=== PATIENT | male | born 1960 | race Caucasian/White ===

== ENCOUNTER 2017-08-06 19:08 | Emergency (ER) | payer BC ==
--- NOTE | 2017-08-06 19:38 | RAD ---
Indication: Neurologic deficit, slurred speech, RIGHT-sided droop, uneven pupils. Comparison: September 20, 2015 Technique: Noncontrast CT vertex of skull through foramen magnum. Report: The sulci, ventricles, and basal cisterns are normal for age. Decreased density in the periventricular and subcortical white matter while non-specific is most likely due to chronic microangiopathy. Castle matter white matter differentiation is preserved without evidence for edema. No intra or extra axial hemorrhage, mass, or fluid collection detected. Unremarkable visualized orbital contents. Unremarkable calvarium and skull base. Unremarkable scalp. The visualized paranasal sinuses and mastoid air spaces are clear. IMPRESSION: 1. No acute intracranial process evident. 2. Stigmata of probable chronic small vessel ischemic disease without change.
[2017-08-06] MEDS ORDERED: NS 0.9% 1000 ML* 1,000 ML IV ONE (19:41)
[2017-08-06 20:18] LABS: ABS Basophils 0 10^3/ul (0-0.2); ABS Eosinophils 0 10^3/ul (0-0.6); ABS Lymphocytes 1.9 10^3/ul (1.0-4.8); ABS Monocytes 0.5 10^3/ul (0-0.8); ABS Neutrophils 4.4 10^3/ul (1.5-7.7); ABS Nucleated RBC 0 10^3/ul; Eosinophil % 0.2 % (0-6); Hematocrit 42 % (42-52); Hemoglobin 13.8 g/dl (14.0-18.0); Lymphocyte % 27.8 % (25-47); Mean Corpuscular HGB Conc 33 g/dl (31-36); Mean Corpuscular Hemoglobin 29 pg (27-31); Mean Corpuscular Volume 88 fL (80-94); Mean Platelet Volume 6.4 um3 (7.4-10.4); Nucleated Red Blood Cells % 0; Platelet Count 282 10^3/ul (150-450); Red Blood Count 4.71 10^6/ul (4.0-5.4); Red Cell Distribution Width 16 % (10.5-15); White Blood Count 6.8 10^3/ul (3.5-10.8)
[2017-08-06 20:22] LABS: INR 0.91 (0.77-1.02)
[2017-08-06 20:35] LABS: EGFR Non-African American 108.3 (>60)
[2017-08-06] MEDS ORDERED: Iohexol 350* (CONTRAST) 500 ML MDV IV ONE (20:48)
--- NOTE | 2017-08-06 20:59 | RAD ---
Indication: Dizziness, intoxication. Comparison: No relevant prior exams available on the [facility] for comparison. Technique: Upright AP 2010 hours Report: Clear lungs and pleural spaces. Negative for pneumothorax. The heart, pulmonary vasculature, and mediastinal contours are unremarkable. Unremarkable osseous structures and soft tissue contours. IMPRESSION: No evidence for acute intrathoracic disease.
[2017-08-06] MEDS ORDERED: Potassium Chlor TAB* 20 MEQ TAB.ER PO ONE (21:02)
--- NOTE | 2017-08-07 07:13 | ED ---
IWilly Nikita, scribed for Checo Lopez MD on 08/06/17 at 2358 . Progress - Progress Note Progress Note: This patient was signed out from Dr. De Souza to Dr. Lopez, pending disposition, awaiting CTA Head. CTA Head reveals mild nonspecific periventricular predominant low density throughout the deep white matter pushpa be due to mild small vessel ischemic white matter disease and other diseases including demyelinating disease is less likely. No evidence of a large territory of subacute stroke. Cannot exclude a small acute stroke. If clinically indicated recommend correlation with diffusion weighted MRI brain. No hemodynamically significant flow-limiting stenosis in the neck arterial vasculature. Course/Dx - Course Course Of Treatment: pt much improved after fluids. alert and oriented, neuro intact. No acute abnormalities on imaging, requests dc at this time. Sodium level chronically around 130. Walking normally, I instructed pt to refrain from excessive amounts of alcohol and to return to the ED for any worsening or concerning sxs. agrees to and understands dc instructions. - Diagnoses Provider Diagnoses: Alcohol intoxication Discharge - Sign-Out/Discharge Documenting (check all that apply): Discharge - Discharge Plan Condition: Improved Disposition: HOME Patient Education Materials: Alcohol Intoxication (ED) Referrals: Jose Francisco MD [Primary Care Provider] - Additional Instructions: PLEASE REFRAIN FROM EXCESSIVE ALCOHOL USE PLEASE RETURN IMMEDIATELY TO THE ER IF YOU HAVE ANY WORSENING OR CONCERNING SYMPTOMS PLEASE MAKE AN APPOINTMENT TO BE SEEN BY YOUR PRIMARY CARE DOCTOR WITHIN 1 WEEK - Billing Disposition and Condition Condition: IMPROVED Disposition: HOME The documentation as recorded by the Willy bella Nikita accurately reflects the service I personally performed and the decisions made by me, Checo Lopez MD.
--- NOTE | 2017-08-07 07:36 | RAD ---
HISTORY: Stroke, intoxication COMPARISONS: Head CT dated August 06, 2017 TECHNIQUE: Multiple contiguous axial CT scans were obtained of the head and neck after the administration of nonionic intravenous contrast timed to the systemic arterial phase of contrast enhancement. Coronal and sagittal multiplanar reformations are submitted for review. Multiple 3-D maximum intensity projection reconstructions are also submitted for review. FINDINGS: Evaluation is limited by suboptimal contrast opacification. CTA NECK: AORTIC ARCH: There is a normal three-vessel branching pattern of the aortic arch. There is no ostial or proximal stenosis of the cephalic great vessels. RIGHT VERTEBRAL ARTERY: There is calcification of the V4 segment of the right vertebral artery, without stenosis. LEFT VERTEBRAL ARTERY: The left vertebral artery is patent along its course, without stenosis. DOMINANCE: The right vertebral artery is dominant. RIGHT COMMON CAROTID ARTERY: The right common carotid artery is patent. The right carotid bifurcation occurs at C3-C4 RIGHT INTERNAL CAROTID ARTERY: There is mild calcific atheromatous disease of the right carotid bifurcation, without right internal carotid artery stenosis by NASCET criteria. The right internal carotid artery is tortuous. RIGHT EXTERNAL CAROTID ARTERY: The right external carotid artery is unremarkable. LEFT COMMON CAROTID ARTERY: The left common carotid artery is patent. The left carotid bifurcation occurs at C3-C4 LEFT INTERNAL CAROTID ARTERY: There is mild calcific atheromatous disease of the left carotid bifurcation, without left internal carotid artery stenosis by NASCET criteria. The left internal carotid artery is tortuous. LEFT EXTERNAL CAROTID ARTERY: The left external carotid artery is unremarkable. VENOUS CIRCULATION: The venous system is unremarkable. SALIVARY GLANDS: The parotid glands, submandibular glands, sublingual glands are normal. NASAL CAVITY/NASOPHARYNX: The nasal cavity and nasopharynx are normal. ORAL CAVITY/OROPHARYNX: The oral cavity is obscured by streak artifact from dental amalgam. The visualized oral cavity and oropharynx are unremarkable. LARYNGEAL APPARATUS/HYPOPHARYNX: The laryngeal apparatus and hypopharynx are normal. UPPER AIRWAY/UPPER ESOPHAGUS: The visualized upper airway and esophagus are normal. LUNG APICES: The lung apices are clear. THYROID GLAND: The thyroid gland is normal. LYMPH NODES: There is no lymphadenopathy by size criteria. BONES AND SOFT TISSUES: No bone or soft tissue abnormalities are noted. CTA HEAD: INTRACRANIAL CIRCULATION: There is no aneurysm, vascular malformation, occlusion, or stenosis of the visualized intracranial circulation. The anterior communicating artery complex is clear. There is a origin of the left posterior cerebral artery. VENOUS CIRCULATION: The venous system is unremarkable. PERFUSION: There is no obvious parenchymal perfusion deficit. HEMORRHAGE/INFARCT: There is no hemorrhage or acute infarct. MASSES/SHIFT: There is no mass or shift. EXTRA-AXIAL SPACES: There are no extra-axial fluid collections. SULCI AND VENTRICLES: The sulci and ventricles are normal in size and position for the patient's stated age. CEREBRUM: There is mild hypoattenuation of the periventricular and subcortical white matter, as noted on the noncontrast CT of the head. BRAINSTEM: There are no focal parenchymal abnormalities. CEREBELLUM: There are no focal parenchymal abnormalities. PARANASAL SINUSES: The paranasal sinuses are clear. ORBITS: The orbits are unremarkable. BONES AND SOFT TISSUE: No bone or soft tissue abnormalities are noted. OTHER: There is no abnormal enhancement. IMPRESSION: 1. MILD ATHEROSCLEROSIS. 2. NO INTERNAL CAROTID ARTERY STENOSIS BY NASCET CRITERIA. 3. NO ANEURYSM, VASCULAR MALFORMATION, OCCLUSION, OR STENOSIS OF THE VISUALIZED INTRACRANIAL CIRCULATION. CPT II Codes: 3100F
[2017-08-07 09:15] VITALS: BP 137/71
--- NOTE | 2017-08-07 10:29 | ED ---
Monica Banks Edward, scribed for Don De Souza on 08/06/17 at 1922 . Neurological HPI - HPI Summary HPI Summary: 57 y/o male BIBA for possible stroke-like symptoms, including slurred speech, possible facial droop and stumbling starting around 1 hr RESPIRATORY DIRECTOR. Pt is not fully report. Police called 1 hr RESPIRATORY DIRECTOR after pt was found stumbling down the street. Pt was found by police resting in his car. PMHx no previous strokes. Pt was out drinking with his friends earlier today, is intoxicated in the ED. Denies weakness/numbness. - History of Current Complaint Chief Complaint: EDNeurologicalDeficit Stated Complaint: INTOXICATION Hx Obtained From: Patient Onset/Duration: Started minutes ago Neurological Deficit Location: Generalized Character: Impaired Speech, Other: - stumbling, possible facial droop Aggravating: Nothing Alleviating: Nothing Associated Signs and Symptoms: Positive: Unsteady Gait, Impaired Speech - Allergy/Home Medications Allergies/Adverse Reactions: Allergies Allergy/AdvReac Type Severity Reaction Status Date / Time Sulfa (Sulfonamide Allergy Hives Verified 08/06/17 19:37 Antibiotics) PMH/Surg Hx/FS Hx/Imm Hx Previously Healthy: No Endocrine/Hematology History: Denies: Hx Anticoagulant Therapy, Hx Diabetes, Hx Thyroid Disease Cardiovascular History: Reports: Hx Hypertension Denies: Hx Congestive Heart Failure, Hx Deep Vein Thrombosis, Hx Myocardial Infarction, Hx Pacemaker/ICD Respiratory History: Denies: Hx Asthma, Hx Chronic Obstructive Pulmonary Disease (COPD), Hx Lung Cancer GI History: Denies: Hx Gall Bladder Disease, Hx Gastrointestinal Bleed, Hx Ulcer, Hx Urosepsis History: Denies: Hx Kidney Stones, Hx Renal Disease Neurological History: Denies: Hx Dementia, Hx Migraine, Hx Seizures, Hx Transient Ischemic Attacks (TIA) Psychiatric History: Reports: Hx Anxiety, Hx Depression Denies: Hx Schizophrenia, Hx Bipolar Disorder - Surgical History Surgery Procedure, Year, and Place: Hernia Repair Infectious Disease History: Denies: Hx Hepatitis, Hx Human Immunodeficiency Virus (HIV), Traveled Outside the [place] in Last 30 Days - Family History Known Family History: Positive: None - Social History Alcohol Use: None Substance Use Type: Reports: None Smoking Status (MU): Former Smoker Review of Systems Constitutional: Negative Eyes: Negative ENT: Negative Cardiovascular: Negative Respiratory: Negative Gastrointestinal: Negative Genitourinary: Negative Musculoskeletal: Negative Skin: Negative Neurological: Other - possible facial droop, stumbling Positive: Slurred Speech Psychological: Normal All Other Systems Reviewed And Are Negative: Yes Physical Exam - Summary Physical Exam Summary: Appearance: Well appearing, no pain distress Skin: warm, dry, reflects adequate perfusion Head/face: normal Eyes: EOMI, SHANNAN ENT: normal Neck: supple, non-tender Respiratory: CTA, breath sounds present Cardiovascular: RRR, pulses symmetrical Abdomen: non-tender, soft Bowel: present Musculoskeletal: normal, strength/ROM intact Neuro: normal, sensory motor intact, A&Ox3 Triage Information Reviewed: Yes Vital Signs On Initial Exam: Initial Vitals Temp Pulse Resp BP Pulse Ox 98.5 F 116 20 151/74 97 08/06/17 19:20 08/06/17 19:20 08/06/17 19:20 08/06/17 19:20 08/06/17 19:20 Vital Signs Reviewed: Yes Diagnostics - Vital Signs Vital Signs Temp Pulse Resp BP Pulse Ox 08/07/17 09:15 97.8 F 92 18 137/71 97 08/07/17 09:00 91 137/71 97 08/07/17 08:30 96 153/68 97 08/07/17 08:01 88 97 08/07/17 08:00 148/64 08/07/17 07:59 94 98 08/07/17 07:30 88 137/63 98 08/07/17 07:00 100 141/61 96 08/07/17 06:30 99 134/80 96 08/07/17 06:17 110 95 08/07/17 06:16 110/84 08/07/17 06:14 95 18 110/84 96 08/07/17 04:04 94 96 08/07/17 04:00 99 97 08/07/17 03:45 89 16 143/75 97 08/07/17 03:42 52 86 08/07/17 02:00 92 14 96 08/07/17 01:00 102 13 97 08/07/17 00:01 97 13 143/54 97 08/07/17 00:00 96 14 96 08/06/17 23:30 79 17 111/49 92 08/06/17 23:20 91 18 139/72 98 08/06/17 23:00 88 16 131/52 93 08/06/17 22:51 96 13 145/66 96 08/06/17 22:00 98 15 95 08/06/17 21:00 103 13 167/97 97 08/06/17 20:53 163/94 08/06/17 20:43 43 81 08/06/17 20:30 102 17 173/93 95 08/06/17 20:12 24 08/06/17 19:43 105 97 08/06/17 19:42 157/89 08/06/17 19:20 98.5 F 116 20 151/74 97 - Laboratory Lab Results: Lab Results 08/06/17 08/06/17 08/06/17 Range/Units 20:00 20:00 20:00 WBC 6.8 (3.5-10.8) 10^3/ul RBC 4.71 (4.0-5.4) 10^6/ul Hgb 13.8 L (14.0-18.0) g/dl Hct 42 (42-52) % MCV 88 (80-94) fL MCH 29 (27-31) pg MCHC 33 (31-36) g/dl RDW 16 H (10.5-15) % Plt Count 282 (150-450) 10^3/ul MPV 6.4 L (7.4-10.4) um3 Neut % (Auto) 64.8 (38-83) % Lymph % (Auto) 27.8 (25-47) % [place] % (Auto) 6.7 (0-7) % Eos % (Auto) 0.2 (0-6) % Baso % (Auto) 0.5 (0-2) % Absolute Neuts (auto) 4.4 (1.5-7.7) 10^3/ul Absolute Lymphs (auto) 1.9 (1.0-4.8) 10^3/ul Absolute Monos (auto) 0.5 (0-0.8) 10^3/ul Absolute Eos (auto) 0 (0-0.6) 10^3/ul Absolute Basos (auto) 0 (0-0.2) 10^3/ul Absolute Nucleated RBC 0 10^3/ul Nucleated RBC % 0 INR (Anticoag Therapy) 0.91 (0.77-1.02) APTT 29.2 (26.0-36.3) seconds Sodium 127 L (133-145) mmol/L Potassium 3.3 L (3.5-5.0) mmol/L Chloride 90 L (101-111) mmol/L Carbon Dioxide 27 (22-32) mmol/L Anion Gap 10 (2-11) mmol/L BUN 9 (6-24) mg/dL Creatinine 0.74 (0.67-1.17) mg/dL Est GFR ( Amer) 139.2 (>60) Est GFR (Non-Af Amer) 108.3 (>60) BUN/Creatinine Ratio 12.2 (8-20) Glucose 137 H (70-100) mg/dL Calcium 9.2 (8.6-10.3) mg/dL Total Bilirubin 0.50 (0.2-1.0) mg/dL AST 22 (13-39) U/L ALT 11 (7-52) U/L Alkaline Phosphatase 46 (34-104) U/L Troponin I 0.00 (<0.04) ng/mL Total Protein 8.4 (6.4-8.9) g/dL Albumin 4.7 (3.2-5.2) g/dL Globulin 3.7 (2-4) g/dL Albumin/Globulin Ratio 1.3 (1-3) Serum Alcohol 426 H* (<10) mg/dL // Range/Units 01:11 WBC (3.5-10.8) 10^3/ul RBC (4.0-5.4) 10^6/ul Hgb (14.0-18.0) g/dl Hct (42-52) % MCV (80-94) fL MCH (27-31) pg MCHC (31-36) g/dl RDW (10.5-15) % Plt Count (150-450) 10^3/ul MPV (7.4-10.4) um3 Neut % (Auto) (38-83) % Lymph % (Auto) (25-47) % [place] % (Auto) (0-7) % Eos % (Auto) (0-6) % Baso % (Auto) (0-2) % Absolute Neuts (auto) (1.5-7.7) 10^3/ul Absolute Lymphs (auto) (1.0-4.8) 10^3/ul Absolute Monos (auto) (0-0.8) 10^3/ul Absolute Eos (auto) (0-0.6) 10^3/ul Absolute Basos (auto) (0-0.2) 10^3/ul Absolute Nucleated RBC 10^3/ul Nucleated RBC % INR (Anticoag Therapy) (0.77-1.02) APTT (26.0-36.3) seconds Sodium 130 L (133-145) mmol/L Potassium (3.5-5.0) mmol/L Chloride (101-111) mmol/L Carbon Dioxide (22-32) mmol/L Anion Gap (2-11) mmol/L BUN (6-24) mg/dL Creatinine (0.67-1.17) mg/dL Est GFR ( Amer) (>60) Est GFR (Non-Af Amer) (>60) BUN/Creatinine Ratio (8-20) Glucose (70-100) mg/dL Calcium (8.6-10.3) mg/dL Total Bilirubin (0.2-1.0) mg/dL AST (13-39) U/L ALT (7-52) U/L Alkaline Phosphatase (34-104) U/L Troponin I (<0.04) ng/mL Total Protein (6.4-8.9) g/dL Albumin (3.2-5.2) g/dL Globulin (2-4) g/dL Albumin/Globulin Ratio (1-3) Serum Alcohol (<10) mg/dL Result Diagrams: 08/06/17 20:00 08/07/17 01:11 Lab Statement: Any lab studies that have been ordered have been reviewed, and results considered in the medical decision making process. - Radiology CXR Xray Interpretation: No Acute Changes - No evidence for acute intrathoracic disease Radiology Interpretation Completed By: Radiologist - CT BRAIN CT CT Interpretation: No Acute Changes - 1. No acute intracranial process evident. 2. Stigmata of probable chronic small vessel ischemic disease without change. CT Interpretation Completed By: Radiologist - EKG 1 EKG Interpretation: Sinus tachycarida @ 103 BPM. No acute changes. Course/Dx - Course Assessment/Plan: 57 y/o male BIBA for possible stroke-like symptoms, including slurred speech, possible facial droop and stumbling starting around 1 hr RESPIRATORY DIRECTOR. Pt is not fully report. Police called 1 hr RESPIRATORY DIRECTOR after pt was found stumbling down the street. Pt was found by police resting in his car. PMHx no previous strokes. Pt was out drinking with his friends earlier today, is intoxicated in the ED. BRAIN CT SHOWS 1. No acute intracranial process evident. 2. Stigmata of probable chronic small vessel ischemic disease without change. EKG - Sinus tachycarida @ 103 BPM. No acute changes. CXR shows no evidence for acute intrathoracic disease. Pt will be signed out to Dr. Lopez pending CTA and dispo. - Differential Dx Differential Diagnoses Neuro: Positive: Cerebrovascular Accident, Concussion, Intracranial Bleed, Transient Ischemic Attack, Vasovagal Reaction - Diagnoses Provider Diagnoses: Alcohol intoxication - Critical Care Time Critical Care Time: 30-74 min Discharge - Sign-Out/Discharge Documenting (check all that apply): Sign-Out Patient Signing out patient TO: Checo Lopez Receiving patient FROM: Don De Souza - Discharge Plan Condition: Improved Disposition: HOME Patient Education Materials: Alcohol Intoxication (ED) Referrals: Jose Francisco MD [Primary Care Provider] - Additional Instructions: PLEASE REFRAIN FROM EXCESSIVE ALCOHOL USE PLEASE RETURN IMMEDIATELY TO THE ER IF YOU HAVE ANY WORSENING OR CONCERNING SYMPTOMS PLEASE MAKE AN APPOINTMENT TO BE SEEN BY YOUR PRIMARY CARE DOCTOR WITHIN 1 WEEK - Billing Disposition and Condition Condition: IMPROVED Disposition: HOME The documentation as recorded by the Monica bella Edward accurately reflects the service I personally performed and the decisions made by , Don De Souza.
== END 2017-08-07 09:15 | disposition home or self-care (01) ==
LOC: ED 19:08
DX: F10.129 Alcohol abuse with intoxication, unspecified (principal); Y90.8 Blood alcohol level of 240 mg/100 ml or more; R00.0 Tachycardia, unspecified; R47.81 Slurred speech; R26.81 Unsteadiness on feet; I10 Essential (primary) hypertension; F41.9 Anxiety disorder, unspecified; F32.9 Major depressive disorder, single episode, unspecified; Z88.2 Allergy status to sulfonamides; Z87.891 Personal history of nicotine dependence
CPT/HCPCS: 36415; 70450; 70496; 70498; 71045; 80053; 80320; 84300; 84484; 85025; 85610; 85730; 93005; 99282; G0480; Q9967

== ENCOUNTER 2018-12-21 11:17 | Emergency (ER) | payer BC ==
[2018-12-21 11:34] VITALS: BP 139/81
--- NOTE | 2018-12-21 11:47 | UC ---
Complaint Male HPI - HPI Summary HPI Summary: PATIENT WAS DIAGNOSED WITH PROSTATE CANCER ABOUT 3 YEARS AGO. 6 DAYS AGO WENT TO A [employer] WHERE HE DRANK HEAVILY. THE NEXT DAY STATED HE WAS UNABLE TO VOID FOR ABOUT 12 HOURS SO HE WENT TO THE [facility] ER WHERE HE REPORTS HE WAS DIAGNOSED WITH URINARY RETENTION AND HAD A GORMAN CATHETER PLACED. HE DEVELOPED INCREASING PAIN SO HE CALLED HIS ONCOLOGIST AT [facility]. HE STATES THEY STARTED HIM ON OXYBUTYNIN AND ADVISED HIM TO COME TO THE URGENT CARE TO BE EVALUATED FOR INFECTION. HE STATES THEY WANT TO SEE HIM IN 4-6 WEEKS FOR FOLLOW -UP AND THAT HE IS NOT TO REMOVE THE GORMAN CATHETER IN THIS TIME. - History of Current Complaint Chief Complaint: UCGU Stated Complaint: URINARY ISSUE Time Seen by Provider: 12/21/18 11:24 Hx Obtained From: Patient Onset/Duration: Gradual Onset, Lasting Days, Still Present Timing: Constant Severity Initially: Moderate Severity Currently: Moderate Pain Intensity: 3 Pain Scale Used: 0-10 Numeric Location: Penis Character: Sharp Aggravating Factor(s): Nothing Alleviating Factor(s): Nothing Associated Signs And Symptoms: Negative: Back Pain, Fever - Allergies/Home Medications Allergies/Adverse Reactions: Allergies Allergy/AdvReac Type Severity Reaction Status Date / Time Sulfa (Sulfonamide Allergy Hives Verified 12/21/18 11:33 Antibiotics) Home Medications: Home Medications Oxybutynin TAB* [Ditropan TAB*] 5 mg PO TID 12/21/18 [History Confirmed 12/21/18 ] PMH/Surg Hx/FS Hx/Imm Hx Cardiovascular History: Hypertension Cancer History: Prostate Cancer Other History Of: Negative For: HIV, Hepatitis B, Hepatitis C, Anticoagulant Therapy - Surgical History Surgical History: Yes Surgery Procedure, Year, and Place: Hernia Repair - Family History Known Family History: Positive: None - Social History Alcohol Use: Occasionally Substance Use Type: None Smoking Status (MU): Former Smoker Review of Systems All Other Systems Reviewed And Are Negative: Yes Constitutional: Positive: Negative Skin: Positive: Negative Respiratory: Positive: Negative Cardiovascular: Positive: Negative Gastrointestinal: Positive: Negative Genitourinary: Positive: Dysuria, Hematuria, Vaginal/Penile Pain Physical Exam Triage Information Reviewed: Yes Appearance: Well-Appearing, No Pain Distress, Well-Nourished Vital Signs: Initial Vital Signs Temp 98.7 F 12/21/18 11:24 Pulse 69 08/09/19 11:24 Resp 18 12/21/18 11:24 BP 139/81 12/21/18 11:24 Pulse Ox 99 12/21/18 11:24 Vital Signs Reviewed: Yes Eyes: Positive: Conjunctiva Clear ENT: Positive: Hearing grossly normal Neck: Positive: Supple Respiratory: Positive: No respiratory distress, No accessory muscle use Cardiovascular: Positive: Pulses Normal Abdomen Description: Positive: Soft. Negative: CVA Tenderness (R), CVA Tenderness (L) Musculoskeletal: Positive: No Edema Neurological: Positive: Alert Psychological: Positive: Age Appropriate Behavior Skin: Negative: Rashes Diagnostics - Laboratory Lab Results: URINE DIP SP. GR. 1.015, 1+ LEUKS, POS NIT, 3+ BLOOD Complaint Male Course/Dx - Course Course Of Treatment: PATIENT EDUCATED ON CARE OF HIS INDWELLING GORMAN CATHETER. URINE DIP SUGGESTIVE OF A UTI. WILL COVER WITH CIPRO TWICE DAILY FOR 10 DAYS. PATIENT STATES HE IS TO HAVE FOLLOW-UP AT [facility] IN 4-6 WEEKS. I ADVISED HIM TO CALL TO BE SEEN EARLIER. I ALSO TOUCHED BASE WITH DR. OLIVAREZ'S OFFICE HERE IN [place] TO SEE IF PATIENT COULD BE REESTABLISHED WITH THEM FOR LOCAL UROLOGY CARE. DR. OLIVAREZ'S NURSE SAID SHE WOULD DISCUSS IT WITH HIM NEXT WEEK WHEN HE RETURNS TO THE OFFICE. I ADVISED THE PATIENT TO CALL HIS OFFICE NEXT WEEK. HE IS TO GO TO THE ER WITHOUT FAIL IF HE DEVELOPS WORSENING PAIN, FEVER, INABILITY TO PRODUCE URINE, PURULENT DRAINAGE INTO THE GORMAN TUBE OR ANY OTHER CONCERNING SYMPTOMS. - Differential Dx/Diagnosis Provider Diagnosis: UTI (urinary tract infection) Discharge - Sign-Out/Discharge Documenting (check all that apply): Patient Departure All imaging exams completed and their final reports reviewed: No Studies - Discharge Plan Condition: Stable Disposition: HOME Prescriptions: Ciprofloxacin TAB* [Cipro 500 MG TAB*] 500 mg PO BID #20 tab Patient Education Materials: Urinary Tract Infection in Men (ED), Gorman Catheter Placement and Care (ED) Referrals: [facility] [Provider Group] - 4 Days David Smith MD [Medical Doctor] - Sanna Alicea PA [Primary Care Provider] - If Needed Additional Instructions: TAKE THE ANTIBIOTIC TWICE DAILY FOR THE FULL 10 DAYS TO COVER FOR URINARY TRACT INFECTION. TAKE GREAT CARE AND FOLLOW [facility] TO HELP PREVENT SEEDING BACTERIA INTO THE APPARATUS WHICH WILL INCREASE YOUR RISK OF RECURRENT INFECTION. CALL TO SCHEDULE YOUR APPOINTMENT WITH DANICA RAJAN IN THE NEXT 4-6 WEEKS. I RECOMMEND YOU SEE IF YOU CAN BE SEEN SOONER. CALL DR. OLIVAREZ'S OFFICE NEXT WEEK TO SEE ABOUT ESTABLISHING LOCAL FOLLOW-UP CARE. GO TO THE ER WITHOUT FAIL IF YOU DEVELOP FEVER, WORSENING PAIN, PURULENT MATERIAL IN THE GORMAN TUBING, NO URINE OUTPUT, NAUSEA OR ANY OTHER CONCERNING SYMPTOMS. CALL DANICA RAJAN TODAY TO ENSURE THAT YOU ARE TAKING OXYBUTYNIN APPROPRIATELY GIVEN YOUR RECENT ER VISIT FOR URINARY RETENTION. - Billing Disposition and Condition Condition: STABLE Disposition: Home
== END 2018-12-21 13:05 | disposition home or self-care (01) ==
LOC: UCEAST 11:17
DX: N39.0 Urinary tract infection, site not specified (principal); C61 Malignant neoplasm of prostate; I10 Essential (primary) hypertension; Z87.891 Personal history of nicotine dependence; Z88.2 Allergy status to sulfonamides
CPT/HCPCS: 81002; 87077; 87086; 87186; 99212; G0463

== ENCOUNTER 2018-12-31 19:25 | Emergency (ER) | payer BC ==
--- NOTE | 2018-12-31 21:17 | ED ---
GI/ HPI - HPI Summary HPI Summary: Patient with history of prostate cancer and indwelling urinary catheter for urinary obstruction complains of catching tubing of catheter on a piece of furniture and is concerned catheter may have been affected. States urine has been draining into bag since that event. Denies any other pain, injury or symptoms. Patient followed by Dr. Martinez of [facility] in [place]. Patient complains of generalized discomfort with catheter. Catheter has been in 15 days, and is supposed to stay in until January 23 per urology. - History of Current Complaint Chief Complaint: EDUrogenitalProblems Time Seen by Provider: 12/31/18 20:18 Stated Complaint: CATHETER ISSUE PER PT Hx Obtained From: Patient Onset/Duration: Started Hours Ago Pain Intensity: 9 Location of Pain: Groin Pain Characteristics: Aching Associated Signs and Symptoms: Positive: Negative - Allergy/Home Medications Allergies/Adverse Reactions: Allergies Allergy/AdvReac Type Severity Reaction Status Date / Time Sulfa (Sulfonamide Allergy Hives Verified 12/31/18 19:30 Antibiotics) PMH/Surg Hx/FS Hx/Imm Hx Endocrine/Hematology History: Denies: Hx Anticoagulant Therapy, Hx Diabetes, Hx Thyroid Disease Cardiovascular History: Reports: Hx Hypertension Denies: Hx Congestive Heart Failure, Hx Deep Vein Thrombosis, Hx Myocardial Infarction, Hx Pacemaker/ICD Respiratory History: Denies: Hx Asthma, Hx Chronic Obstructive Pulmonary Disease (COPD), Hx Lung Cancer GI History: Denies: Hx Gall Bladder Disease, Hx Gastrointestinal Bleed, Hx Ulcer, Hx Urosepsis History: Denies: Hx Kidney Stones, Hx Renal Disease Sensory History: Denies: Hx Eye Prosthesis Opthamlomology History: Denies: Hx Legally Blind EENT History: Denies: Hx Deafness Neurological History: Denies: Hx Dementia, Hx Migraine, Hx Seizures, Hx Transient Ischemic Attacks (TIA) Psychiatric History: Reports: Hx Anxiety, Hx Depression Denies: Hx Schizophrenia, Hx Bipolar Disorder - Cancer History Cancer Type, Location and Year: prostate cancer - Surgical History Surgery Procedure, Year, and Place: Hernia Repair Infectious Disease History: No Infectious Disease History: Denies: Hx Hepatitis, Hx Human Immunodeficiency Virus (HIV), Traveled Outside the [place] in Last 30 Days - Family History Known Family History: Positive: None - Social History Alcohol Use: Occasionally Substance Use Type: Reports: None Smoking Status (MU): Former Smoker Review of Systems Constitutional: Negative Eyes: Negative ENT: Negative Cardiovascular: Negative Respiratory: Negative Gastrointestinal: Negative Genitourinary: Negative Musculoskeletal: Negative Skin: Negative Neurological: Negative Psychological: Normal All Other Systems Reviewed And Are Negative: Yes Physical Exam Triage Information Reviewed: Yes Vital Signs On Initial Exam: Initial Vitals Temp Pulse Resp BP Pulse Ox 98.2 F 61 15 167/98 99 12/31/18 19:27 12/31/18 19:27 12/31/18 19:27 12/31/18 19:27 12/31/18 19:27 Vital Signs Reviewed: Yes Appearance: Positive: Well-Appearing Skin: Positive: Warm Head/Face: Positive: Normal Head/Face Inspection Eyes: Positive: Normal Neck: Positive: Supple Respiratory/Lung Sounds: Positive: Clear to Auscultation Cardiovascular: Positive: Normal Abdomen Description: Positive: Nontender Male Genital Exam: Positive: Normal Genitalia Musculoskeletal: Positive: Normal Neurological: Positive: Normal Psychiatric: Positive: Normal AVPU Assessment: Alert - Brandy Coma Scale Best Eye Response: 4 - Spontaneous Best Motor Response: 6 - Obeys Commands Best Verbal Response: 5 - Oriented Coma Scale Total: 15 Diagnostics - Vital Signs Vital Signs Temp Pulse Resp BP Pulse Ox 12/31/18 19:27 98.2 F 61 15 167/98 99 - Laboratory Lab Statement: Any lab studies that have been ordered have been reviewed, and results considered in the medical decision making process. GIGU Course/Dx - Course Course Of Treatment: Patient with history of prostate cancer and indwelling urinary catheter for urinary obstruction complains of catching tubing of catheter on a piece of furniture and is concerned catheter may have been affected. States urine has been draining into bag since that event. Denies any other pain, injury or symptoms. Patient followed by Dr. Martinez of [facility] in [place]. Patient complains of generalized discomfort with catheter. Catheter has been in 15 days, and is supposed to stay in until January 23 per urology. Vital signs within normal limits. Catheter examined and remains functional and solidly in place. Patient advised to follow-up with urology. - Diagnoses Provider Diagnoses: Zavala catheter status Discharge - Sign-Out/Discharge Documenting (check all that apply): Patient Departure Patient Received Moderate/Deep Sedation with Procedure: No - Discharge Plan Condition: Stable Disposition: HOME Patient Education Materials: Zavala Catheter Placement and Care (ED) Referrals: Sanna Alicea PA [Primary Care Provider] - Additional Instructions: Follow-up with your urologist. - Billing Disposition and Condition Condition: STABLE Disposition: Home
[2018-12-31 21:41] VITALS: BP 150/91
== END 2018-12-31 21:40 | disposition home or self-care (01) ==
LOC: ED 19:25
DX: Z46.6 Encounter for fitting and adjustment of urinary device (principal); I10 Essential (primary) hypertension; C61 Malignant neoplasm of prostate; Z88.2 Allergy status to sulfonamides; Z87.891 Personal history of nicotine dependence
CPT/HCPCS: 99282

== ENCOUNTER 2019-01-19 14:17 | Emergency (ER) | payer BC ==
--- NOTE | 2019-01-19 15:51 | ED ---
GI/ HPI - HPI Summary HPI Summary: 58 year old M presenting to [facility] with a chief complaint of catheter complication since 01/19/19 at 14:25 , per triage. Symptoms aggravated by nothing. Symptoms alleviated by nothing. Patient reports his provider, a nurse practitioner under a urologist, told him that he needs a catheter changed and that he has a UTI. Per patient provider, Visit Urgent Care, primary care provider, or emergency room today to have catheter changed and take 2 antibiotics (levofloxin, ampicillin) due to the resistant bacteria in urine thats growing. Patient denies fever and chills and just reports pain where urinary catheter was placed 4-5 weeks ago for urinary retention due to prostate cancer. Patient denies any other medical problems and denies use of cigarettes and drugs. Patient drinks alcohol occasionally. - History of Current Complaint Chief Complaint: EDUrogenitalProblems Time Seen by Provider: 01/19/19 15:25 Stated Complaint: CATH CHANGE AND BLOOD WORK PER PT Hx Obtained From: Patient Onset/Duration: Started Hours Ago, Still Present Timing: Constant Pain Intensity: 4 Associated Signs and Symptoms: Negative: Fever, Chills Aggravating Factor(s): Nothing Alleviating Factor(s): Nothing - Allergy/Home Medications Allergies/Adverse Reactions: Allergies Allergy/AdvReac Type Severity Reaction Status Date / Time Sulfa (Sulfonamide Allergy Hives Verified 01/01/19 19:42 Antibiotics) PMH/Surg Hx/FS Hx/Imm Hx Endocrine/Hematology History: Denies: Hx Anticoagulant Therapy, Hx Diabetes, Hx Thyroid Disease Cardiovascular History: Reports: Hx Hypertension Denies: Hx Congestive Heart Failure, Hx Deep Vein Thrombosis, Hx Myocardial Infarction, Hx Pacemaker/ICD Respiratory History: Denies: Hx Asthma, Hx Chronic Obstructive Pulmonary Disease (COPD), Hx Lung Cancer GI History: Denies: Hx Gall Bladder Disease, Hx Gastrointestinal Bleed, Hx Ulcer, Hx Urosepsis History: Denies: Hx Kidney Stones, Hx Renal Disease Sensory History: Denies: Hx Eye Prosthesis, Hx Legally Blind, Hx Deafness Opthamlomology History: Denies: Hx Eye Prosthesis, Hx Legally Blind Neurological History: Denies: Hx Dementia, Hx Migraine, Hx Seizures, Hx Transient Ischemic Attacks (TIA) Psychiatric History: Reports: Hx Anxiety, Hx Depression Denies: Hx Schizophrenia, Hx Bipolar Disorder - Cancer History Cancer Type, Location and Year: prostate cancer - Surgical History Surgery Procedure, Year, and Place: Hernia Repair. wisdom teeth Infectious Disease History: No Infectious Disease History: Reports: Hx Shingles - 1974 Denies: Hx Hepatitis, Hx Human Immunodeficiency Virus (HIV), Traveled Outside the in Last 30 Days - Family History Known Family History: Positive: Non-Contributory - Social History Alcohol Use: Occasionally Hx Substance Use: No Substance Use Type: Reports: None Hx Tobacco Use: Yes Smoking Status (MU): Former Smoker Review of Systems Negative: Fever, Chills Genitourinary: Other - catheter complication, penile pain All Other Systems Reviewed And Are Negative: Yes Physical Exam - Summary Physical Exam Summary: Constitutional: Well-developed, Well-nourished, Alert. (-) Distressed Skin: Warm, Dry HENT: Normocephalic; Atraumatic Eyes: Conjunctiva normal Neck: Musculoskeletal ROM normal neck. (-) JVD, (-) Stridor, (-) Tracheal deviation Cardio: Rhythm regular, rate normal, Heart sounds normal; Intact distal pulses; The pedal pulses are 2+ and symmetric. Radial pulses are 2+ and symmetric. (-) Murmur Pulmonary/Chest wall: Effort normal. (-) Respiratory distress, (-) Wheezes, (-) Rales Abd: Soft, (-) tenderness, (-) Distension, (-) Guarding, (-) Rebound Musculoskeletal:avendano catheter present Lymph: (-) Cervical adenopathy Neuro: Alert, Oriented x3 Psych: Mood and affect Normal Triage Information Reviewed: Yes Vital Signs On Initial Exam: Initial Vitals Temp Pulse Resp BP Pulse Ox 97.5 F 71 18 163/94 98 01/19/19 14:23 01/19/19 14:23 01/19/19 14:23 01/19/19 14:23 01/19/19 14:23 Vital Signs Reviewed: Yes Diagnostics - Vital Signs Vital Signs Temp Pulse Resp BP Pulse Ox 01/19/19 14:23 97.5 F 71 18 163/94 98 - Laboratory Result Diagrams: 01/19/19 15:52 Lab Statement: Any lab studies that have been ordered have been reviewed, and results considered in the medical decision making process. GIGU Course/Dx - Course Course Of Treatment: Patient is here after being referred from his nurse practitioner from [facility] for a catheter exchange. Patient had successful Avendano catheter exchange. Patient had a urine culture at his doctor' s office which showed a growth unknown origin and is being placed on antibiotics by them. Patient had a BMP performed at the request of this nurse practitioner which showed hyponatremia. Patient states he took the has a sodium in the 120s and that this is not atypical for him. Patient did not want to be admitted for sodium of 125. Patient was encouraged to call his practitioner as soon as possible to let her know the results. - Diagnoses Provider Diagnoses: Hyponatremia, Urinary tract infection, Complication of Avendano catheter Discharge ED - Sign-Out/Discharge Documenting (check all that apply): Patient Departure - discharge Patient Received Moderate/Deep Sedation with Procedure: No - Discharge Plan Condition: Stable Disposition: HOME Patient Education Materials: Hyponatremia (ED) Referrals: Sanna Alicea PA [Primary Care Provider] - As Soon As Possible Additional Instructions: Sodium is low. Call nurse practitioner as soon as possible today to let her know. Come back to ED for fever, chills, abdominal pain, or if you are not thinking right. - Billing Disposition and Condition Condition: STABLE Disposition: Home - Attestation Statements Document Initiated by Jose Luise: Yes Documenting Scribe: Vaishali Cruz Provider For Whom Lacey is Documenting (Include Credential): Dr. Johny Eubanks Scribe Attestation: I, Vaishali Crzu, scribed for Dr. Johny Eubanks on 01/20/19 at 1126. Scribe Documentation Reviewed: Yes Provider Attestation: The documentation as recorded by the Vaishali bella accurately reflects the service I personally performed and the decisions made by me, Dr. Johny Eubanks Status of Scribe Document: Viewed
[2019-01-19 16:16] LABS: BUN/Creatinine Ratio 14.3 (8-20); Calcium 9.1 mg/dL (8.6-10.3); EGFR African American 124.7 (>60); EGFR Non-African American 103.1 (>60); Potassium 3.6 mmol/L (3.5-5.0)
[2019-01-19 16:31] VITALS: BP 147/87
== END 2019-01-19 16:30 | disposition home or self-care (01) ==
LOC: ED 14:17
DX: T83.9XXA Unspecified complication of genitourinary prosthetic device, implant and graft, initial encounter (principal); N39.0 Urinary tract infection, site not specified; E87.1 Hypo-osmolality and hyponatremia; I10 Essential (primary) hypertension; C61 Malignant neoplasm of prostate; Z87.891 Personal history of nicotine dependence; Z79.899 Other long term (current) drug therapy; Z88.2 Allergy status to sulfonamides
CPT/HCPCS: 36415; 80048; 99282

== ENCOUNTER 2019-01-25 09:15 | Emergency (ER) | payer BC ==
[2019-01-25] MEDS ORDERED: Lidocaine 2% JELLY* 10 ML JELLY TOPICAL ONE (10:14)
[2019-01-25 10:57] LABS: Urine Appearance Clear; Urine Bacteria Absent (Absent); Urine Bilirubin Negative (Negative); Urine Blood 1+ (Negative); Urine Color Straw; Urine Glucose Negative (Negative); Urine Ketones Negative (Negative); Urine Nitrite Negative (Negative); Urine Protein Negative (Negative); Urine Red Blood Cell 1+(3-5/hpf) (Absent); Urine Specific Gravity 1.011 (1.010-1.030); Urine Urobilinogen Negative (Negative); Urine White Blood Cell Trace(0-5/hpf) (Absent)
--- NOTE | 2019-01-25 10:58 | ED ---
GI/ HPI - HPI Summary HPI Summary: Patient is a 58-year-old male with history of prostate cancer who presents to the ED with pain at the urethral site of his Avendano catheter. Patient states he was seen here 2 weeks ago and Avendano catheter was placed and denied any pain at that time. He had a Avendano catheter replaced several days ago and he states since that time he has been having pain. He believes the balloon may be inflated to much. Continues to be able to drain into the Avendano catheter without problems and denies any darkened urine. He does endorse to possibly some gross hematuria, however he is unsure. He states they attempted to keep the Avendano catheter out, however he failed the "void test." Upon replacing the Avendano catheter, he immediately felt pain and has continued to feel pain at the urethral and inside the bladder. He denies any fevers, sweats, chills and states he feels otherwise well. - History of Current Complaint Chief Complaint: EDUrogenitalProblems Time Seen by Provider: 01/25/19 09:33 Stated Complaint: ISSUES WITH AVENDANO PER PT Hx Obtained From: Patient Onset/Duration: Started Hours Ago Timing: Constant Severity: Moderate Pain Intensity: 8 Additional Locations for Males: Penis Pain Characteristics: Aching - Allergy/Home Medications Allergies/Adverse Reactions: Allergies Allergy/AdvReac Type Severity Reaction Status Date / Time Sulfa (Sulfonamide Allergy Hives Verified 01/25/19 09:41 Antibiotics) Home Medications: Home Medications Ampicillin CAP* [Ampicillin Cap*] 500 mg PO TID 01/25/19 [History Confirmed ] Finasteride TAB* [Proscar TAB*] 5 mg PO DAILY 01/25/19 [History Confirmed ] Levofloxacin TAB* [Levaquin TAB*] 750 mg PO DAILY 01/25/19 [History Confirmed ] Melatonin (NF) 1 mg PO BEDTIME 01/25/19 [History Confirmed 01/25/19] PMH/Surg Hx/FS Hx/Imm Hx Previously Healthy: Yes Endocrine/Hematology History: Denies: Hx Anticoagulant Therapy, Hx Diabetes, Hx Thyroid Disease Cardiovascular History: Reports: Hx Hypertension Denies: Hx Congestive Heart Failure, Hx Deep Vein Thrombosis, Hx Myocardial Infarction, Hx Pacemaker/ICD Respiratory History: Denies: Hx Asthma, Hx Chronic Obstructive Pulmonary Disease (COPD), Hx Lung Cancer GI History: Denies: Hx Gall Bladder Disease, Hx Gastrointestinal Bleed, Hx Ulcer, Hx Urosepsis History: Denies: Hx Kidney Stones, Hx Renal Disease Sensory History: Denies: Hx Eye Prosthesis, Hx Legally Blind, Hx Deafness Opthamlomology History: Denies: Hx Eye Prosthesis, Hx Legally Blind Neurological History: Denies: Hx Dementia, Hx Migraine, Hx Seizures, Hx Transient Ischemic Attacks (TIA) Psychiatric History: Reports: Hx Anxiety, Hx Depression Denies: Hx Schizophrenia, Hx Bipolar Disorder - Cancer History Cancer Type, Location and Year: prostate cancer - Surgical History Surgery Procedure, Year, and Place: Hernia Repair. wisdom teeth - Immunization History Hx Pertussis Vaccination: No Immunizations Up to Date: Yes Infectious Disease History: No Infectious Disease History: Reports: Hx Shingles - 1974 Denies: Hx Hepatitis, Hx Human Immunodeficiency Virus (HIV), Traveled Outside the [place] in Last 30 Days - Family History Known Family History: Positive: Non-Contributory - Social History Occupation: Employed Full-time Lives: With Family Alcohol Use: Occasionally Hx Substance Use: No Substance Use Type: Reports: None Hx Tobacco Use: Yes Smoking Status (MU): Former Smoker Review of Systems Constitutional: Negative Negative: Fever, Chills, Fatigue, Skin Diaphoresis Negative: Palpitations, Chest Pain Negative: Shortness Of Breath, Cough Positive: see HPI, hematuria Negative: Arthralgia, Myalgia Neurological: Negative All Other Systems Reviewed And Are Negative: Yes Physical Exam Triage Information Reviewed: Yes Vital Signs On Initial Exam: Initial Vitals Temp Pulse Resp BP Pulse Ox 98.5 F 77 18 155/90 98 01/25/19 09:20 01/25/19 09:20 01/25/19 09:20 01/25/19 09:20 01/25/19 09:20 Vital Signs Reviewed: Yes Appearance: Positive: Well-Appearing, Well-Nourished Skin: Positive: Warm, Skin Color Reflects Adequate Perfusion Head/Face: Positive: Normal Head/Face Inspection Eyes: Positive: EOMI, SHANNAN, Conjunctiva Clear Neck: Positive: Supple, No Lymphadenopathy Respiratory/Lung Sounds: Positive: Clear to Auscultation, Breath Sounds Present Cardiovascular: Positive: RRR, Pulses are Symmetrical in both Upper and Lower Extremities Musculoskeletal: Positive: Normal, Strength/ROM Intact Neurological: Positive: Speech Normal Psychiatric: Positive: Affect/Mood Appropriate AVPU Assessment: Alert Diagnostics - Vital Signs Vital Signs Temp Pulse Resp BP Pulse Ox 01/25/19 09:20 98.5 F 77 18 155/90 98 - Laboratory Lab Statement: Any lab studies that have been ordered have been reviewed, and results considered in the medical decision making process. GIGU Course/Dx - Course Course Of Treatment: On physical examination, patient appears well and in no pain distress. Avendano catheter was changed using lidocaine jelly. Patient states he is denying any pain at this time and symptoms greatly improved after the Avendano change. UA obtained which shows no obvious infection. Patient remains on ampicillin as well as Levaquin. He will be discharged with Avendano catheter change. - Diagnoses Differential Diagnoses - Male: Other - avendano catheter replacement, avendano catheter pain, UTI Provider Diagnoses: Avendano catheter problem Discharge ED - Sign-Out/Discharge Documenting (check all that apply): Patient Departure Patient Received Moderate/Deep Sedation with Procedure: No - Discharge Plan Condition: Stable Disposition: HOME Referrals: Sanna Alicea PA [Primary Care Provider] - Additional Instructions: Continue your follow ups as scheduled - Billing Disposition and Condition Condition: STABLE Disposition: Home - Attestation Statements Provider Attestation: I was available for consult. This patient was seen by the [facility]. The patient was not presented to, seen by, or examined by me. -Alvaro
[2019-01-25] MEDS ORDERED: Lidocaine 2% JELLY* 6 ML JELLY TOPICAL ONE (11:00)
[2019-01-25 11:30] VITALS: BP 149/88
== END 2019-01-25 11:21 | disposition home or self-care (01) ==
LOC: ED 09:15
DX: T83.84XA Pain due to genitourinary prosthetic devices, implants and grafts, initial encounter (principal); C61 Malignant neoplasm of prostate; I10 Essential (primary) hypertension; F41.9 Anxiety disorder, unspecified; F32.9 Major depressive disorder, single episode, unspecified; Z87.891 Personal history of nicotine dependence; Z79.899 Other long term (current) drug therapy; Z88.2 Allergy status to sulfonamides
CPT/HCPCS: 51702; 81003; 81015; 87086; 99282; A9270-GY

== ENCOUNTER 2019-02-21 09:30 | Emergency (ER) | payer BC ==
--- NOTE | 2019-02-21 10:38 | ED ---
GI/ HPI - HPI Summary HPI Summary: patient is a 58-year-old male presenting to the ED with request for Zavala catheter change. Patient states catheter was originally placed at [facility]. History of prostate cancer. He states he has an indwelling catheter times several months now. He does not have any urologist in the area. He continues to see [facility], however is to have a catheter changed every 3 weeks. He currently does not have home health aids to aid him in any catheter changes. - History of Current Complaint Chief Complaint: EDUrogenitalProblems Time Seen by Provider: 02/21/19 09:38 Stated Complaint: NEEDS CATH CHANGED PER PT Hx Obtained From: Patient Onset/Duration: Started Hours Ago Timing: Constant Severity: Mild Current Severity: None Pain Intensity: 0 Associated Signs and Symptoms: Positive: Negative Alleviating Factor(s): Nothing - Allergy/Home Medications Allergies/Adverse Reactions: Allergies Allergy/AdvReac Type Severity Reaction Status Date / Time Sulfa (Sulfonamide Allergy Hives Verified 02/21/19 09:35 Antibiotics) PMH/Surg Hx/FS Hx/Imm Hx Previously Healthy: Yes Endocrine/Hematology History: Denies: Hx Anticoagulant Therapy, Hx Diabetes, Hx Thyroid Disease Cardiovascular History: Reports: Hx Hypertension Denies: Hx Congestive Heart Failure, Hx Deep Vein Thrombosis, Hx Myocardial Infarction, Hx Pacemaker/ICD Respiratory History: Denies: Hx Asthma, Hx Chronic Obstructive Pulmonary Disease (COPD), Hx Lung Cancer GI History: Denies: Hx Gall Bladder Disease, Hx Gastrointestinal Bleed, Hx Ulcer, Hx Urosepsis History: Denies: Hx Kidney Stones, Hx Renal Disease Sensory History: Denies: Hx Eye Prosthesis, Hx Legally Blind, Hx Deafness Opthamlomology History: Denies: Hx Eye Prosthesis, Hx Legally Blind Neurological History: Denies: Hx Dementia, Hx Migraine, Hx Seizures, Hx Transient Ischemic Attacks (TIA) Psychiatric History: Reports: Hx Anxiety, Hx Depression Denies: Hx Schizophrenia, Hx Bipolar Disorder - Cancer History Cancer Type, Location and Year: prostate cancer - Surgical History Surgery Procedure, Year, and Place: Hernia Repair. wisdom teeth - Immunization History Hx Pertussis Vaccination: No Immunizations Up to Date: Yes Infectious Disease History: No Infectious Disease History: Reports: Hx Shingles - 1974, Traveled Outside the [place] in Last 30 Days - uba Denies: Hx Hepatitis, Hx Human Immunodeficiency Virus (HIV) - Family History Known Family History: Positive: Non-Contributory - Social History Occupation: Employed Full-time Lives: With Family Alcohol Use: Occasionally Hx Substance Use: No Substance Use Type: Reports: None Hx Tobacco Use: Yes Smoking Status (MU): Former Smoker Review of Systems Negative: Fever, Chills, Fatigue, Skin Diaphoresis Negative: Palpitations, Chest Pain Negative: Shortness Of Breath, Cough Negative: Abdominal Pain, Vomiting, Diarrhea, Nausea Positive: see HPI Negative: Arthralgia, Myalgia Skin: Negative All Other Systems Reviewed And Are Negative: Yes Physical Exam Triage Information Reviewed: Yes Vital Signs On Initial Exam: Initial Vitals Temp Pulse Resp BP Pulse Ox 97.9 F 75 15 201/110 99 02/21/19 09:31 02/21/19 09:31 02/21/19 09:31 02/21/19 09:31 02/21/19 09:31 Vital Signs Reviewed: Yes Appearance: Positive: Well-Appearing, Well-Nourished Skin: Positive: Warm, Skin Color Reflects Adequate Perfusion Head/Face: Positive: Normal Head/Face Inspection Eyes: Positive: SHANNAN, Conjunctiva Clear Neck: Positive: Supple, No Lymphadenopathy Respiratory/Lung Sounds: Positive: Clear to Auscultation, Breath Sounds Present Cardiovascular: Positive: RRR, Pulses are Symmetrical in both Upper and Lower Extremities Musculoskeletal: Positive: Normal, Strength/ROM Intact Neurological: Positive: Speech Normal Psychiatric: Positive: Normal, Affect/Mood Appropriate AVPU Assessment: Alert Procedures - Sedation Patient Received Moderate/Deep Sedation with Procedure: No Diagnostics - Vital Signs Vital Signs Temp Pulse Resp BP Pulse Ox 02/21/19 09:31 97.9 F 75 15 201/110 99 - Laboratory Lab Statement: Any lab studies that have been ordered have been reviewed, and results considered in the medical decision making process. GIGU Course/Dx - Course Course Of Treatment: During his course treatment, the patient is evaluated for Zavala catheter change. Patient states he needs his Zavala catheter changed every 3 weeks per his M.D., however does not have a urologist in the area. He continues to see an M.D. at [facility]. Patient denies any symptoms. Denies any issues with flow. Denies any hematuria or cloudy urine. 16 [place] [address] placed by RN. Patient tolerated well. - Diagnoses Provider Diagnoses: Urinary catheter (Zavala) change required Discharge ED - Sign-Out/Discharge Documenting (check all that apply): Patient Departure - Discharge Plan Condition: Stable Disposition: HOME Patient Education Materials: Zavala Catheter Placement and Care (ED) Referrals: Sanna Alicea PA [Primary Care Provider] - Additional Instructions: Please follow up with urology as scheduled Return to the ED if you develop any problems with your catheter - Billing Disposition and Condition Condition: STABLE Disposition: Home
[2019-02-21 11:02] VITALS: BP 162/90
== END 2019-02-21 11:01 | disposition home or self-care (01) ==
LOC: ED 09:30
DX: Z46.6 Encounter for fitting and adjustment of urinary device (principal); I10 Essential (primary) hypertension; Z87.891 Personal history of nicotine dependence; Z79.899 Other long term (current) drug therapy; Z88.2 Allergy status to sulfonamides
CPT/HCPCS: 51702; 99282